=== PATIENT | male | born 1945 | race Caucasian/White ===

== ENCOUNTER 2019-08-14 10:06 | Emergency (ER) | payer MEDICARE ==
[2019-08-14 11:21] LABS: #Eosinphils 0.1 thou/uL (0.0-0.7); #Lymphocytes 1.4 thou/uL (1.20-3.40); #Monocytes 0.7 thou/uL (0.11-0.59); #Neutrophils 6.1 thou/uL (1.40-6.50); %Basophils 0.6 % (0.0-1.0); %Eosinophils 1.7 % (0.0-10.0); %Lymphocytes 16.2 % (21.0-51.0); %Monocytes 8.7 % (0.0-10.0); %Neutrophils 72.8 % (42.0-75.0); Hemoglobin 15.1 g/dL (14.0-18.0); Mean Corpuscular HGB CONC 34.2 g/dL (32.0-36.0); Mean Corpuscular Hemoglobin 29.1 pg (27.0-31.0); Mean Corpuscular Volume 85.1 fL (78.0-98.0); Mean Platelet Volume 9.2 fL (7.4-10.4); Platelet Count 166 thou/uL (130-400); RBC Distribution Width 14.5 % (11.5-14.5); White Blood Cell (WBC) Count 8.3 thou/uL (4.8-10.8)
[2019-08-14 11:33] LABS: ALT (SGPT) 17 U/L (8-55); AST (SGOT) 17 U/L (5-34); Albumin 3.8 g/dL (3.4-4.8); Alkaline Phosphatase 97 U/L (40-110); Anion Gap 15 mmol/L (10-20); BUN (Urea Nitrogen) 26 mg/dL (8.4-25.7); Bilirubin, Total 0.6 mg/dL (0.2-1.2); Calc. Creatinine Clearance 0 mL/min (70-130); Calcium 9.6 mg/dL (7.8-10.44); Carbon Dioxide 24 mmol/L (23-31); Chloride 102 mmol/L (98-107); Estimated GFR-MDRD 55; Globulin 2.8 g/dL (2.4-3.5); Glucose 243 mg/dL (83-110); Potassium 3.5 mmol/L (3.5-5.1); Protein, Total 6.6 g/dL (5.8-8.1); Sodium 137 mmol/L (136-145)
[2019-08-14 13:05] LABS: Bilirubin Negative (Negative); Blood, Urine Negative (Negative); Clarity Clear (Clear); Glucose, Urine (Dipstick) 300 mg/dL (Negative); Leukocyte Negative Leu/uL (Negative); Nitrite Negative (Negative); Protein, Urine (Dipstick) 20 mg/dL (Neg-Trace); Urobilinogen Normal mg/dL (Less than 2)
--- NOTE | 2019-08-14 13:27 | ULT ---
BILATERAL RENAL ULTRASOUND: Date: 08/14/19 PROVIDED CLINICAL HISTORY: None. FINDINGS: Right kidney measures about 10.6 x 4.9 x 4.6 cm and demonstrates no evidence for hydronephrosis or so lid mass. Simple appearing right renal cyst. Left kidney measures about 12.5 x 5.3 x 4.9 cm and demonstrates no evidence for hydronephrosis or mas s. 1.5 cm simple appearing left renal cyst. The urinary bladder is incompletely distended and not optimally evaluated, but appears grossly normal . The prostate gland appears enlarged. IMPRESSION: No evidence for hydronephrosis. POS: TPC
== END 2019-08-14 13:40 | disposition home or self-care (01) ==
LOC: ERS 10:06 → EDSEX 10:06 → ERS 13:40
DX: E11.65 Type 2 diabetes mellitus with hyperglycemia (principal); E86.0 Dehydration; R31.9 Hematuria, unspecified; I10 Essential (primary) hypertension; Z86.73 Personal history of transient ischemic attack (TIA), and cerebral infarction without residual deficits; Z79.82 Long term (current) use of aspirin; Z79.01 Long term (current) use of anticoagulants; Z79.899 Other long term (current) drug therapy; Z79.84 Long term (current) use of oral hypoglycemic drugs
CPT/HCPCS: 36415; 76770; 80053; 81003; 85025; 87086

== ENCOUNTER 2019-12-16 04:00 | Inpatient (IN) | payer MEDICARE ==
[2019-12-16] MEDS ORDERED: Nitroglycerin 0.4 MG TAB 1 EACH ONE (04:13)
[2019-12-16 04:27] LABS: #Basophils 0.1 thou/uL (0.0-0.2); #Eosinphils 0.3 thou/uL (0.0-0.7); #Monocytes 0.8 thou/uL (0.11-0.59); #Neutrophils 7.6 thou/uL (1.40-6.50); %Basophils 0.6 % (0.0-1.0); %Eosinophils 2.6 % (0.0-10.0); %Lymphocytes 18.5 % (21.0-51.0); %Monocytes 7.2 % (0.0-10.0); %Neutrophils 71.1 % (42.0-75.0); Mean Corpuscular HGB CONC 30.6 g/dL (32.0-36.0); Mean Corpuscular Hemoglobin 28.2 pg (27.0-31.0); Mean Platelet Volume 9.3 fL (7.4-10.4); Platelet Count 201 thou/uL (130-400); RBC Distribution Width 14.5 % (11.5-14.5); Red Blood Cell (RBC) Count 4.97 mill/uL (4.70-6.10); White Blood Cell (WBC) Count 10.6 thou/uL (4.8-10.8)
[2019-12-16 04:47] LABS: ALT (SGPT) 20 U/L (8-55); AST (SGOT) 17 U/L (5-34); Albumin 4.1 g/dL (3.4-4.8); Alkaline Phosphatase 129 U/L (40-110); Anion Gap 13 mmol/L (10-20); BUN (Urea Nitrogen) 25 mg/dL (8.4-25.7); Bilirubin, Total 0.5 mg/dL (0.2-1.2); Calc. Creatinine Clearance 0 mL/min (70-130); Calcium 9.3 mg/dL (7.8-10.44); Carbon Dioxide 29 mmol/L (23-31); Chloride 104 mmol/L (98-107); Estimated GFR-MDRD 57; Globulin 3.2 g/dL (2.4-3.5); Glucose 254 mg/dL (83-110); Protein, Total 7.3 g/dL (5.8-8.1); Sodium 142 mmol/L (136-145)
[2019-12-16 05:05] LABS: CKMB 1.8 ng/mL (0-6.6)
[2019-12-16] MEDS ORDERED: Furosemide 40 MG/4 ML VIAL ONE (05:41)
[2019-12-16] MEDS ORDERED: Nitroglycerin 2% Ointment 1 INCH/1 GM Packet ONE (06:11)
--- NOTE | 2019-12-16 07:19 | RAD ---
RADIOGRAPH CHEST 1 VIEW: DATE: 12/16/2019 TIME: 4:23 AM HISTORY: 74-year-old male with dyspnea COMPARISON: 10/21/2019 FINDINGS: New finding of bilateral diffuse interstitial infiltrates, greatest in the central perihilar and medi al basilar lung zones. No cardiomegaly. Sternotomy wires. Left subclavian pacemaker. No pneumothorax. Lateral costophrenic angles sharp. IMPRESSION: Diffuse new bilateral acute interstitial infiltrates.
[2019-12-16] MEDS ORDERED: Magnesium Sulfate 2 GM in Sodium Chloride 0.9% 100 ML IVPB SCH (07:30)
[2019-12-16] MEDS ORDERED: Acetaminophen 325 MG TAB PO PRN (07:37)
[2019-12-16] MEDS ORDERED: Insulin Regular 300 UNITS/3 ML VIAL SC PRN (07:39)
[2019-12-16] MEDS ORDERED: Dextrose 50% Abboject 50 ML SYRINGE SLOW IVP PRN (07:39)
[2019-12-16] MEDS ORDERED: Dextrose 5% in Water 1,000 ML IV PRN (07:39)
[2019-12-16] MEDS ORDERED: Magnesium 2 GM/50 ML 2 GM in Premix Bag 1 BAG IVPB SCH (08:00)
[2019-12-16] MEDS ORDERED: Aspirin 81 mg Enteric Coated Tablet PO SCH (09:00)
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
[2019-12-16 18:37] VITALS: BMI 21.7
[2019-12-16] MEDS: metFORMIN 500 MG TAB PO SCH (22:58)
[2019-12-16] MEDS: Atorvastatin Calcium 40 MG TAB PO SCH (23:27)
[2019-12-16] MEDS: Metoprolol Tartrate 100 MG TAB PO SCH ×2 (23:27→23:50)
[2019-12-16] MEDS: Heparin 5,000 UNITS/ML VIAL SC SCH ×2 (23:27→23:49)
[2019-12-16] MEDS: Famotidine 20 MG TAB PO SCH ×2 (23:27→23:49)
[2019-12-16] MEDS: Aspirin 81 mg Enteric Coated Tablet PO SCH (23:31)
[2019-12-16] MEDS: Isosorbide Mononitrate (ER) 30 MG TAB PO SCH (23:49)
[2019-12-16] MEDS: Lisinopril 20 MG TAB PO SCH (23:50)
[2019-12-16] MEDS: Furosemide 40 MG/4 ML VIAL SLOW IVP SCH (23:50)
[2019-12-16] MEDS: Loratadine 10 MG TAB PO SCH (23:50)
[2019-12-17 04:58] LABS: #Eosinphils 0.2 thou/uL (0.0-0.7); #Lymphocytes 1.6 thou/uL (1.20-3.40); #Monocytes 0.7 thou/uL (0.11-0.59); #Neutrophils 5.7 thou/uL (1.40-6.50); %Basophils 0.5 % (0.0-1.0); %Eosinophils 2.5 % (0.0-10.0); %Lymphocytes 19.5 % (21.0-51.0); %Neutrophils 69.5 % (42.0-75.0); Hemoglobin 13.4 g/dL (14.0-18.0); Mean Corpuscular HGB CONC 32.8 g/dL (32.0-36.0); Mean Corpuscular Hemoglobin 29.8 pg (27.0-31.0); Mean Corpuscular Volume 90.9 fL (78.0-98.0); Mean Platelet Volume 9.5 fL (7.4-10.4); Platelet Count 184 thou/uL (130-400); RBC Distribution Width 14.5 % (11.5-14.5); Red Blood Cell (RBC) Count 4.51 mill/uL (4.70-6.10); White Blood Cell (WBC) Count 8.1 thou/uL (4.8-10.8)
[2019-12-17 05:13] LABS: ALT (SGPT) 19 U/L (8-55); AST (SGOT) 21 U/L (5-34); Albumin 3.7 g/dL (3.4-4.8); Alkaline Phosphatase 123 U/L (40-110); Anion Gap 12 mmol/L (10-20); BUN (Urea Nitrogen) 15 mg/dL (8.4-25.7); Bilirubin, Total 0.7 mg/dL (0.2-1.2); Calc. Creatinine Clearance 69 mL/min (70-130); Calcium 9.2 mg/dL (7.8-10.44); Carbon Dioxide 31 mmol/L (23-31); Chloride 103 mmol/L (98-107); Estimated GFR-MDRD Greater than 90; Globulin 2.7 g/dL (2.4-3.5); Glucose 160 mg/dL (83-110); Magnesium 1.8 mg/dL (1.6-2.6); Potassium 3.7 mmol/L (3.5-5.1); Protein, Total 6.4 g/dL (5.8-8.1); Sodium 142 mmol/L (136-145)
[2019-12-17] MEDS: Furosemide 40 MG/4 ML VIAL SLOW IVP SCH ×2 (05:49→14:50)
[2019-12-17] MEDS: Isosorbide Mononitrate (ER) 30 MG TAB PO SCH (08:32)
[2019-12-17] MEDS: Loratadine 10 MG TAB PO SCH (08:32)
[2019-12-17] MEDS: Aspirin 81 mg Enteric Coated Tablet PO SCH (08:32)
[2019-12-17] MEDS: Lisinopril 20 MG TAB PO SCH (08:32)
[2019-12-17] MEDS: Famotidine 20 MG TAB PO SCH ×2 (08:36→20:50)
[2019-12-17] MEDS: metFORMIN 500 MG TAB PO SCH ×2 (08:36→17:57)
[2019-12-17] MEDS: Heparin 5,000 UNITS/ML VIAL SC SCH ×2 (08:36→20:51)
[2019-12-17] MEDS: Metoprolol Tartrate 100 MG TAB PO SCH (08:36)
[2019-12-17] MEDS: Insulin Regular 300 UNITS/3 ML VIAL SC PRN (12:31)
--- NOTE | 2019-12-17 14:46 | PDOC.HOSPP ---
- Subjective Encounter Date: 12/17/19 Encounter Time: 10:30 Subjective: breathing better, is ambulating in room no chest pain or palp - Objective Vital Signs & Weight: Vital Signs (12 hours) Temp Pulse Pulse Pulse Resp BP BP 12/17/19 11:35 97.7 F 60 16 12/17/19 10:41 60 65 117/76 117/75 12/17/19 08:00 97.5 F L 64 17 12/17/19 03:54 97.7 F 62 20 BP Pulse Ox 12/17/19 11:35 127/74 96 12/17/19 10:41 12/17/19 08:00 152/84 H 99 12/17/19 03:54 167/77 H 98 Weight Weight 132 lb 7 oz I&O: 12/16/19 12/17/19 12/18/19 06:59 06:59 06:59 Intake Total 480 Output Total 300 Balance 180 Result Diagrams: 12/17/19 04:25 12/17/19 04:25 Additional Labs: Accuchecks 12/17/19 12/17/19 12/16/19 11:13 05:45 20:37 POC Glucose 254 H 150 H 197 H 12/16/19 12/16/19 16:02 14:26 POC Glucose 135 H 142 H Hospitalist ROS - Medication Medications: Active Medications Generic Name Dose Route Start Last Admin Trade Name Freq PRN Reason Stop Dose Admin Aspirin 81 mg 12/16/19 09:00 12/17/19 08:32 Ecotrin PO 81 mg DAILY TERESA Administration Atorvastatin Calcium 80 mg 12/16/19 21:00 12/16/19 23:27 Lipitor PO 80 mg HS TERESA Administration Famotidine 20 mg 12/16/19 09:00 12/17/19 08:36 Pepcid PO 20 mg BID TERESA Administration Furosemide 40 mg 12/16/19 14:00 12/17/19 05:49 Lasix SLOW IVP 40 mg 0600,1400 TERESA Administration Heparin Sodium (Porcine) 5,000 units 12/16/19 09:00 12/17/19 08:36 Heparin SC 5,000 units BID TERESA Administration Insulin Human Regular 0 units 12/16/19 07:39 12/17/19 12:31 Humulin R SC 4 unit .MILD SLIDING SCALE PRN Administration Mild Correctional Scale Isosorbide Mononitrate 30 mg 12/16/19 09:00 12/17/19 08:32 Imdur Er PO 30 mg DAILY TERESA Administration Lisinopril 20 mg 12/16/19 09:00 12/17/19 08:32 Zestril PO 20 mg DAILY TERESA Administration Loratadine 10 mg 12/16/19 09:00 12/17/19 08:32 Claritin PO 10 mg DAILY TERESA Administration Metformin HCl 1,000 mg 12/16/19 08:00 12/17/19 08:36 Glucophage PO 1,000 mg BID-WM TERESA Administration Metoprolol Tartrate 100 mg 12/16/19 09:00 12/17/19 08:36 Lopressor PO 100 mg BID TERESA Administration Pantoprazole Sodium 40 mg 12/16/19 09:00 12/17/19 08:36 Protonix PO 40 mg DAILY TERESA Administration - Exam General Appearance: NAD, awake alert Eye: PERRL, anicteric sclera ENT: no oropharyngeal lesions, moist mucosa Neck: supple, no JVD Heart: RRR, no murmur Respiratory: no wheezes, no ronchi, rales Gastrointestinal: soft, non-tender, non-distended, normal bowel sounds Extremities: no cyanosis, 1+ LE edema Neurological: cranial nerve grossly intact, no focal deficits Psychiatric: normal affect, A&O x 3 Hosp A/P (1) CHF exacerbation Code(s): I50.9 - HEART FAILURE, UNSPECIFIED Status: Acute Qualifiers: Heart failure type: combined systolic and diastolic Qualified Code(s): I50.43 - Acute on chronic combined systolic (congestive) and diastolic ( congestive) heart failure (2) CAD (coronary artery disease) Code(s): I25.10 - ATHSCL HEART DISEASE OF [place] CORONARY ARTERY W/O ANG PCTRS Status: Chronic Qualifiers: Coronary Disease-Associated Artery/Lesion type: bypass graft [place] vs. transplanted heart: [place] heart Associated angina: without angina Qualified Code(s): I25.810 - Atherosclerosis of coronary artery bypass graft(s) without angina pectoris (3) DM type 2 (diabetes mellitus, type 2) Status: Chronic Qualifiers: Diabetes mellitus termite control representative insulin use: without assisted use (4) HTN (hypertension) Code(s): I10 - ESSENTIAL (PRIMARY) HYPERTENSION Status: Chronic Qualifiers: Hypertension type: essential hypertension Qualified Code(s): I10 - Essential (primary) hypertension (5) Dyslipidemia Code(s): E78.5 - HYPERLIPIDEMIA, UNSPECIFIED Status: Chronic (6) Acute respiratory failure with hypoxia Code(s): J96.01 - ACUTE RESPIRATORY FAILURE WITH HYPOXIA Status: Resolved - Plan is on lasix 40mg iv at 6am and 2pm, will switch to oral from am continue lopressor, lisinopril, imdur er, aspirin, lipitor, metformin, protonix to ambulate in hallway as tolerated hemostable
[2019-12-17] MEDS: Carvedilol 6.25 MG TAB PO SCH (17:57)
--- NOTE | 2019-12-17 18:37 | CON ---
DATE OF CONSULTATION: PRIMARY EVENTS TRAFFIC CONTROLLER: Avtar Hedrick MD REASON FOR ADMISSION: Congestive heart failure. HISTORY OF PRESENT ILLNESS: Mr. Silva is a very pleasant 74-year-old gentleman. The patient has a history of coronary artery disease, previous bypass surgery, previous stroke, and previous pacemaker insertion. The patient was admitted to this hospital with difficulty breathing and was found to be in pulmonary edema on chest x-ray. The patient said he woke up in the middle of the night, could not breathe. He said "I felt like I was going to ." The patient improved here with intravenous diuretics. He is feeling much better now. Breathing easily now. PAST MEDICAL HISTORY: Has a history of bypass surgery x4 by Dr. Wing Deleon, with internal mammary artery to the LAD, and vein graft to a diagonal, second obtuse marginal, and posterior descending artery. Dr. Deleon noted these were redo targets. He was seen at that time by Dr. Ryley Hughes. The patient presented at that time in 2014 with high-degree AV block. In 2017, the patient had a left pontine cerebrovascular accident. He was placed on Plavix. The patient also has a history of pacemaker insertion. Dual-chamber device was placed by Dr. Hedrick in 2019. The patient had been doing well up until the day of this admission. MEDICATIONS: At home were: 1. Isosorbide. 2. Aspirin. 3. Pantoprazole. 4. Metoprolol 100 mg twice a day. 5. Lisinopril. 6. Atorvastatin. 7. Ranolazine. ALLERGIES: ALLERGY TO LIRAGLUTIDE. REVIEW OF SYSTEMS: CONSTITUTIONAL: No significant weight gain or loss. VISION: No changes. HEARING: No changes. PULMONARY: No cough or wheezing. GASTROINTESTINAL: No nausea, vomiting, or diarrhea. SKIN: No rashes. NEUROLOGIC: No unilateral weakness or numbness. PSYCHIATRIC: No unusual depression or anxiety. PHYSICAL EXAMINATION: GENERAL: This is a pleasant 74-year-old gentleman, resting comfortably, in no distress. VITAL SIGNS: Blood pressure earlier this morning 167/77 and most recently 127/74, pulse 60 and it is paced. NECK: Neck veins are normal. Carotid normal upstrokes. LUNGS: Clear. CARDIAC: Normal S1 and normal S2. I do not hear murmur, rub, or gallop. ABDOMEN: Soft and nontender. No hepatosplenomegaly. EXTREMITIES: Warm and dry. No clubbing or cyanosis. There is no edema, peripheral. PERTINENT LABORATORY DATA: The patient's potassium 3.7. Troponin 0.52. EKG shows AV sequential pacing. Chest x-ray showed pulmonary edema initially. ASSESSMENT: 1. Previous coronary artery bypass grafting. 2. Non-ST elevation myocardial infarction type 2, demand ischemia. 3. Congestive heart failure, probably diastolic in nature, but need to repeat the echo. He has RV pacing, sometimes there is some decrease in ejection fraction associated with that, need to re-evaluate the systolic function. 4. Previous pacemaker insertion appears to be functioning normally. PLAN: 1. Repeat echo. 2. Change from metoprolol to carvedilol. 3. Agree with changing to oral diuretics instead of intravenous. Dr. Hedrick to see tomorrow. Job ID: [id number]
[2019-12-17] MEDS: Atorvastatin Calcium 40 MG TAB PO SCH (20:50)
[2019-12-18 05:17] LABS: ALT (SGPT) 17 U/L (8-55); AST (SGOT) 15 U/L (5-34); Albumin 3.5 g/dL (3.4-4.8); Alkaline Phosphatase 114 U/L (40-110); Anion Gap 14 mmol/L (10-20); BUN (Urea Nitrogen) 29 mg/dL (8.4-25.7); Bilirubin, Total 0.4 mg/dL (0.2-1.2); Calc. Creatinine Clearance 48 mL/min (70-130); Calcium 9.2 mg/dL (7.8-10.44); Carbon Dioxide 28 mmol/L (23-31); Chloride 101 mmol/L (98-107); Estimated GFR-MDRD 61; Globulin 2.8 g/dL (2.4-3.5); Glucose 254 mg/dL (83-110); Magnesium 1.8 mg/dL (1.6-2.6); Potassium 3.6 mmol/L (3.5-5.1); Protein, Total 6.3 g/dL (5.8-8.1); Sodium 139 mmol/L (136-145)
[2019-12-18] MEDS: metFORMIN 500 MG TAB PO SCH ×2 (09:20→18:02)
[2019-12-18] MEDS: Aspirin 81 mg Enteric Coated Tablet PO SCH (09:20)
[2019-12-18] MEDS: Isosorbide Mononitrate (ER) 30 MG TAB PO SCH (09:20)
[2019-12-18] MEDS: Lisinopril 20 MG TAB PO SCH (09:21)
[2019-12-18] MEDS: Famotidine 20 MG TAB PO SCH ×2 (09:21→20:58)
[2019-12-18] MEDS: Furosemide 40 MG TAB PO SCH (09:21)
[2019-12-18] MEDS: Loratadine 10 MG TAB PO SCH (09:21)
[2019-12-18] MEDS: Carvedilol 6.25 MG TAB PO SCH ×2 (09:21→18:01)
[2019-12-18] MEDS: Heparin 5,000 UNITS/ML VIAL SC SCH ×2 (09:21→20:58)
--- NOTE | 2019-12-18 11:59 | PDOC.HOSPP ---
- Subjective Encounter Date: 12/18/19 Encounter Time: 10:15 Subjective: no chest pain or sob feels better says he is ambulating in hallway - Objective Vital Signs & Weight: Vital Signs (12 hours) Temp Pulse Pulse Pulse Resp BP BP 12/18/19 11:42 97.7 F 68 16 12/18/19 08:51 63 66 139/66 159/76 H 12/18/19 08:00 97.5 F L 66 17 12/18/19 03:23 97.4 F L 63 18 BP Pulse Ox 12/18/19 11:42 123/65 97 12/18/19 08:51 12/18/19 08:00 159/76 H 98 12/18/19 03:23 139/66 99 Weight Weight 128 lb 7 oz I&O: 12/17/19 12/18/19 12/19/19 06:59 06:59 06:59 Intake Total 480 Output Total 450 Balance 30 Result Diagrams: 12/17/19 04:25 12/18/19 04:17 Additional Labs: Accuchecks 12/18/19 12/18/19 12/17/19 10:52 05:21 20:21 POC Glucose 160 H 217 H 132 H 12/17/19 12/17/19 16:31 11:13 POC Glucose 111 H 254 H Hospitalist ROS - Medication Medications: Active Medications Generic Name Dose Route Start Last Admin Trade Name Freq PRN Reason Stop Dose Admin Aspirin 81 mg 12/16/19 09:00 12/18/19 09:20 Ecotrin PO 81 mg DAILY TERESA Administration Atorvastatin Calcium 80 mg 12/16/19 21:00 12/17/19 20:50 Lipitor PO 80 mg HS TERESA Administration Carvedilol 12.5 mg 12/17/19 17:00 12/18/19 09:21 Coreg PO 12.5 mg BID-WM TERESA Administration Famotidine 20 mg 12/16/19 09:00 12/18/19 09:21 Pepcid PO 20 mg BID TERESA Administration Furosemide 40 mg 12/18/19 07:30 12/18/19 09:21 Lasix PO 40 mg DAILY-AC TERESA Administration Heparin Sodium (Porcine) 5,000 units 12/16/19 09:00 12/18/19 09:21 Heparin SC 5,000 units BID TERESA Administration Insulin Human Regular 0 units 12/16/19 07:39 02/04/20 12:31 Humulin R SC 4 unit .MILD SLIDING SCALE PRN Administration Mild Correctional Scale Isosorbide Mononitrate 30 mg 12/16/19 09:00 12/18/19 09:20 Imdur Er PO 30 mg DAILY TERESA Administration Lisinopril 20 mg 12/16/19 09:00 12/18/19 09:21 Zestril PO 20 mg DAILY TERESA Administration Loratadine 10 mg 12/16/19 09:00 12/18/19 09:21 Claritin PO 10 mg DAILY TERESA Administration Metformin HCl 1,000 mg 12/16/19 08:00 12/18/19 09:20 Glucophage PO 1,000 mg BID-WM TERESA Administration Pantoprazole Sodium 40 mg 12/16/19 09:00 12/18/19 09:21 Protonix PO 40 mg DAILY TERESA Administration - Exam General Appearance: awake alert Eye: PERRL, anicteric sclera ENT: no oropharyngeal lesions, moist mucosa Neck: supple, no JVD Heart: RRR, no murmur Respiratory: no wheezes, no rales Gastrointestinal: soft, non-tender, non-distended, normal bowel sounds Extremities: no cyanosis, no edema Neurological: cranial nerve grossly intact, no focal deficits Psychiatric: normal affect, A&O x 3 Hosp A/P (1) CHF exacerbation Code(s): I50.9 - HEART FAILURE, UNSPECIFIED Status: Acute Qualifiers: Heart failure type: combined systolic and diastolic Qualified Code(s): I50.43 - Acute on chronic combined systolic (congestive) and diastolic ( congestive) heart failure (2) CAD (coronary artery disease) Code(s): I25.10 - ATHSCL HEART DISEASE OF [place] CORONARY ARTERY W/O ANG PCTRS Status: Chronic Qualifiers: Coronary Disease-Associated Artery/Lesion type: bypass graft [place] vs. transplanted heart: [place] heart Associated angina: without angina Qualified Code(s): I25.810 - Atherosclerosis of coronary artery bypass graft(s) without angina pectoris (3) DM type 2 (diabetes mellitus, type 2) Status: Chronic Qualifiers: Diabetes mellitus long-term insulin use: without long-term use (4) HTN (hypertension) Code(s): I10 - ESSENTIAL (PRIMARY) HYPERTENSION Status: Chronic Qualifiers: Hypertension type: essential hypertension Qualified Code(s): I10 - Essential (primary) hypertension (5) Dyslipidemia Code(s): E78.5 - HYPERLIPIDEMIA, UNSPECIFIED Status: Chronic (6) Acute respiratory failure with hypoxia Code(s): J96.01 - ACUTE RESPIRATORY FAILURE WITH HYPOXIA Status: Resolved - Plan is on lasix 40mg po daily. continue coreg, lisinopril, imdur er, aspirin, lipitor, metformin, protonix to ambulate in hallway as tolerated hemostable dc plan in am if ok with
[2019-12-18] MEDS: Insulin Regular 300 UNITS/3 ML VIAL SC PRN (18:02)
[2019-12-18] MEDS: Atorvastatin Calcium 40 MG TAB PO SCH (20:58)
[2019-12-19 07:42] LABS: Anion Gap 14 mmol/L (10-20); BUN (Urea Nitrogen) 28 mg/dL (8.4-25.7); Calc. Creatinine Clearance 51 mL/min (70-130); Calcium 9.2 mg/dL (7.8-10.44); Carbon Dioxide 31 mmol/L (23-31); Chloride 101 mmol/L (98-107); Estimated GFR-MDRD 66; Glucose 136 mg/dL (83-110); Sodium 142 mmol/L (136-145)
[2019-12-19] MEDS: metFORMIN 500 MG TAB PO SCH (08:44)
[2019-12-19] MEDS: Heparin 5,000 UNITS/ML VIAL SC SCH (08:45)
[2019-12-19] MEDS: Lisinopril 20 MG TAB PO SCH (08:45)
[2019-12-19] MEDS: Furosemide 40 MG TAB PO SCH (08:45)
[2019-12-19] MEDS: Aspirin 81 mg Enteric Coated Tablet PO SCH (08:45)
[2019-12-19] MEDS: Famotidine 20 MG TAB PO SCH (08:45)
[2019-12-19] MEDS: Isosorbide Mononitrate (ER) 30 MG TAB PO SCH (08:45)
[2019-12-19] MEDS: Carvedilol 6.25 MG TAB PO SCH (08:45)
[2019-12-19] MEDS: Loratadine 10 MG TAB PO SCH (08:46)
[2019-12-19 12:03] VITALS: BP 110/58; TEMP 97.2
--- NOTE | 2019-12-19 17:24 | DIS ---
DATE OF ADMISSION: 12/16/2019 DATE OF DISCHARGE: 12/19/2019 DISCHARGE DISPOSITION: Home. PRIMARY DISCHARGE DIAGNOSIS: Acute congestive heart failure exacerbation with diastolic dysfunction. SECONDARY DISCHARGE DIAGNOSES: 1. History of coronary artery disease. 2. Acute respiratory failure with hypoxia secondary to congestive heart failure exacerbation, resolved. 3. History of coronary artery bypass graft. 4. Diabetes mellitus type 2. 5. Hypertension. 6. Dyslipidemia. PROCEDURES DONE DURING HOSPITALIZATION: Chest x-ray done showed pulmonary vascular congestion. Echo with 2D Doppler showed EF of 50% to 55%, distal septum and apex were severely hypokinetic to akinetic, moderate concentric LVH. H and H 13 and 40, platelet count 184, MCV 90, white count of 8.1. Discharge BUN of 28 and 1.0. Discharge bicarb is 31. Albumin 3.5. BNP 491. INPATIENT CONSULT: Dr. Fernandes/Ryley for Cardiology. DISCHARGE PLAN: The patient will follow up with Dr. Hedrick on 01/28/2020 at 11:00 a.m. He needs to follow up with Dr. Robin Freeman his primary care physician in 1 week. BRIEF COURSE DURING HOSPITALIZATION: The patient initially came in with complaints of shortness of breath. His initial workup revealed acute CHF exacerbation. He also had acute respiratory failure and had to be placed on 4L nasal cannula on arrival. The patient was on Lasix and has diuresed well. Cardiology consultation with Dr. Fernandes/Ryley was requested. Echo done revealed an ejection fraction of around 50% to 55% with septal and apex being severely hypokinetic to akinetic. He has had prior history of CABG as well. The patient has done remarkably well during his brief stay here. Prior to discharge, he is ambulating. He is off nasal cannula. His medications were optimized during his stay here. Please note I have seen and examined the patient on the day of discharge. DISCHARGE MEDICATIONS: 1. Aspirin 81 mg p.o. daily. 2. Lipitor 80 mg p.o. at bedtime. 3. Imdur extended release 30 mg p.o. daily. 4. Lisinopril 20 mg p.o. daily. 5. Loratadine 10 mg p.o. daily. 6. Metformin 1000 mg twice daily. 7. Protonix 40 mg daily. 8. Coreg 12.5 mg twice daily. 9. Lasix 40 mg daily. 10. Melatonin 3 mg p.o. at bedtime. 11. MiraLAX 17 g daily. 12. Ranexa 1000 mg twice daily. ALLERGIES: LIRAGLUTIDE. Job ID: [id number]
--- NOTE | 2019-12-20 04:23 | PQF ---
[employer] Hel[employer] Crystal Reports Winform Viewer COLTEN ALCANTARA VINAYA KUMAR MD [id number] CLINICAL DOCUMENTATION CLARIFICATION FORM: POST DISCHARGE Addendum to original discharge summary date: ____ Late entry note date: __ DATE: 12/20/19 ATTN: Odette Mc Please exercise your independent, professional judgment in responding to the clarification form. Clinical indicators are provided on the bottom of this form for your review Can you please further clarify if Non-ST elevation myocardial infraction type 2 ruled in or ruled out? Non- ST elevation myocardial infraction type 2 [ x] Ruled in diagnosis [ ] Continue to treat [ x ] Resolved [ ] Ruled out diagnosis [ ] Cannot rule out diagnosis [ ] Other diagnosis [ ] Unable to determine In addition, please specify: Present on Admission (POA): [ x] Yes [ ] No [ ] Unable to determine For continuity of documentation, please document condition throughout progress notes and discharge summary. Thank You. CLINICAL INDICATORS - SIGNS / SYMPTOMS / LABS Consult 12/17 Dr. Fernandes- pg.2- Non- ST elevation myocardia infraction type 2 Laboratory- Troponin 0.029H, 0.524H H and P pg.1- BP 224/129 H and P pg.3- Hypertensive crisis RISK FACTORS Acute CHF exacerbation- DS pg.1 CAD- DS pg.1 Acute respiratory failure- DS pg.1 DM type 2- DS pg.1 Hypertension- DS pg.1 TREATMENTS Echocardiogram 12/19 Cardiology Consult 12/17 Dr. Fernandes Chest X ray 2/ IV fluids- MAR Aspirin 81mg PO- MAR Carvedilol 12.5PO- mAR (This form is maintained as a part of the permanent medical record) 2014 [employer]. All Rights Reserved [email or web address]
== END 2019-12-19 13:04 | disposition home or self-care (01) | DRG 280 ==
LOC: ERS 04:00 → ERHOLD 05:35 → 2NO 17:37
PROVIDERS: ADMIT Internal Medicine; ATTEND Internal Medicine
DX: I11.0 Hypertensive heart disease with heart failure (principal); J96.01 Acute respiratory failure with hypoxia; I21.A1 Myocardial infarction type 2; I69.351 Hemiplegia and hemiparesis following cerebral infarction affecting right dominant side; I16.9 Hypertensive crisis, unspecified; I50.43 Acute on chronic combined systolic (congestive) and diastolic (congestive) heart failure; E11.9 Type 2 diabetes mellitus without complications; E78.5 Hyperlipidemia, unspecified; E83.42 Hypomagnesemia; I49.5 Sick sinus syndrome; I25.10 Atherosclerotic heart disease of native coronary artery without angina pectoris; Z95.1 Presence of aortocoronary bypass graft; Z79.82 Long term (current) use of aspirin; Z79.84 Long term (current) use of oral hypoglycemic drugs; Z79.899 Other long term (current) drug therapy; Z95.0 Presence of cardiac pacemaker; Z90.49 Acquired absence of other specified parts of digestive tract
CPT/HCPCS: 36415; 36416; 71045; 80048; 80053; 82553; 83735; 83880; 84484; 85025; 93005; 93306; 96374; C1713; J1644; J1815; J1940

== ENCOUNTER 2022-11-01 17:30 | Emergency (ER) | payer MEDICARE ==
[2022-11-01] MEDS ORDERED: Dexamethasone 10 MG/ML VIAL ONE (17:49)
[2022-11-01] MEDS ORDERED: Ketorolac Tromethamine 30 MG/ML VIAL ONE (17:49)
[2022-11-01] MEDS ORDERED: Albuterol 200 PUFF (6.7GM INHALER) ONE (18:43)
[2022-11-01 19:08] LABS: SARS-CoV-2 NAA Rapid Test DETECTED (NotDetected)
== END 2022-11-01 19:05 | disposition home or self-care (01) ==
LOC: ERS 17:30
DX: U07.1 COVID-19 (principal)
CPT/HCPCS: 71045; U0002; 96374; 96375; J1100; J1885

== ENCOUNTER 2022-12-01 08:37 | Emergency (ER) | payer MEDICARE ==
[2022-12-01 11:06] LABS: #Eosinphils 0.3 thou/uL (0.0-0.7); #Lymphocytes 1.2 thou/uL (1.20-3.40); #Monocytes 0.6 thou/uL (0.11-0.59); #Neutrophils 4.3 thou/uL (1.40-6.50); %Basophils 0.2 % (0.0-1.0); %Lymphocytes 18.1 % (21.0-51.0); %Monocytes 9.8 % (0.0-10.0); %Neutrophils 66.9 % (42.0-75.0); Hemoglobin 15.4 g/dL (14.0-18.0); Mean Corpuscular HGB CONC 32.5 g/dL (32.0-36.0); Mean Corpuscular Hemoglobin 29.9 pg (27.0-31.0); Mean Corpuscular Volume 92.1 fl (78.0-98.0); Mean Platelet Volume 8.7 fL (7.4-10.4); Platelet Count 147 10x3/uL (130-400); RBC Distribution Width 14.2 % (11.5-14.5); Red Blood Cell (RBC) Count 5.16 mill/uL (4.70-6.10); White Blood Cell (WBC) Count 6.4 10x3/uL (4.8-10.8)
[2022-12-01 11:26] LABS: ALT (SGPT) 10 U/L (8-55); AST (SGOT) 12 U/L (5-34); Albumin 3.6 g/dL (3.4-4.8); Alkaline Phosphatase 106 U/L (40-110); Anion Gap 15 mmol/L (10-20); BUN (Urea Nitrogen) 30 mg/dL (8.4-25.7); Bilirubin, Total 0.7 mg/dL (0.2-1.2); Calc. Creatinine Clearance 0 mL/min (70-130); Calcium 9.1 mg/dL (7.8-10.44); Carbon Dioxide 26 mmol/L (23-31); Chloride 105 mmol/L (98-107); Estimated GFR 61; Globulin 3.4 g/dL (2.4-3.5); Glucose 194 mg/dL (83-110); Potassium 3.8 mmol/L (3.5-5.1); Sodium 142 mmol/L (136-145)
[2022-12-01] MEDS ORDERED: Rivaroxaban 15 MG TAB PO SCH (13:45)
== END 2022-12-01 14:56 | disposition home or self-care (01) ==
LOC: ERS 08:37
DX: I82.431 Acute embolism and thrombosis of right popliteal vein (principal); I82.411 Acute embolism and thrombosis of right femoral vein; E11.9 Type 2 diabetes mellitus without complications; I10 Essential (primary) hypertension; Z79.899 Other long term (current) drug therapy
CPT/HCPCS: 36415; 71045; 80053; 83880; 84484; 85025; 93005